=== PATIENT | female | born 1955 | race Caucasian/White ===

== ENCOUNTER → 2018-08-01 09:04 | Outpatient (CLI) | payer BC, SELFPAY ==
--- NOTE | 2018-08-01 09:08 | MM_ITS ---
MM Dig screening mamm BI w/CAD CAD Screening COMPARISON: None, patient had previous mammograms at [place], [place] more than 8 years ago INDICATION: There is no personal or family history of breast cancer TECHNIQUE: Standard CC and MLO images were obtained. R2 CAD reviewed. FINDINGS: Prominent heterogenic fibroglandular densities are seen in the central portions of both breast and the findings are bilateral and symmetrical. There is no suspicious lesion and there are no suspicious microcalcifications. IMPRESSION: Moderately dense parenchymal pattern with no suspicious lesion seen BI-RADS Category: 1 Negative RECOMMENDED FOLLOW-UP: 1YR - 1 YEAR FOLLOW-UP (A letter has been sent to the patient regarding results of the study.)
== END ==
PROVIDERS: PCP Nurse Practitioner Family; Visit Provider Nurse Practitioner Family
DX: Z12.31 Encounter for screening mammogram for malignant neoplasm of breast (principal)
CPT/HCPCS: 77067

== ENCOUNTER 2023-02-12 09:18 | Day surgery (SDC) | payer BC, SELFPAY ==
[2023-02-08 08:44] VITALS: BMI 23.0
[2023-02-12] VITALS (7 sets, daily range): BP systolic 110–150; BP diastolic 58–80; PULSE 54–70; RESP 16–19; TEMP 36.3–36.5; O2SAT 97–100
== END 2023-02-12 11:39 | disposition home or self-care (01) ==
PROVIDERS: PCP Nurse Practitioner Family; Visit Provider Ophthalmology
PROC: (CPT 66984; principal; 2023-02-12 12:00)
DX: H25.811 Combined forms of age-related cataract, right eye (principal)
CPT/HCPCS: 66984; V2632

== ENCOUNTER 2023-02-26 07:39 | Day surgery (SDC) | payer BC, SELFPAY ==
[2023-02-26] VITALS (7 sets, daily range): BP systolic 135–190; BP diastolic 80–88; PULSE 52–61; RESP 16–19; TEMP 36.4–36.7; O2SAT 99–100; BMI 21.6
== END 2023-02-26 10:15 | disposition home or self-care (01) ==
PROVIDERS: PCP Nurse Practitioner Family; Visit Provider Ophthalmology
PROC: (CPT 66984; principal; 2023-02-26 09:30)
DX: H25.812 Combined forms of age-related cataract, left eye (principal)
CPT/HCPCS: 66984; V2632

== ENCOUNTER 2024-07-24 08:09 | Outpatient (CLI) | payer MEDICARE, OTHER, SELFPAY ==
--- NOTE | 2024-07-24 08:14 | CT_ITS ---
FINAL REPORT TECHNIQUE: Pre-and postcontrast axial imaging of the abdomen and pelvis was obtained. Coronal and sagittal reconstructed images were obtained. This study was performed with techniques to keep radiation doses as low as reasonably achievable, (ALARA). Individualized dose reduction technique using automated exposure control or adjustment of mA and/or kV according to the patient's size were employed. CLINICAL HISTORY: DIVERTICULITIS COMPARISON: None FINDINGS: The lung bases are clear. The liver is homogeneous. There is no focal lesion identified. The gallbladder is present. The spleen, adrenal glands, and pancreas are without acute abnormality. There is no hydronephrosis or solid renal mass. On precontrast imaging, there are bilateral nonobstructing renal stones. The largest on the left measures 8 mm. The largest on the right measures 6 mm. The urinary bladder is unremarkable. Abdominal GI tract demonstrates a small hiatal hernia. There is no small bowel obstruction. There is no lymphadenopathy or ascites. The appendix has been resected. There is sigmoid diverticulosis without diverticulitis. The uterus is absent. There is no abdominal or pelvic lymphadenopathy. There is no evidence of free fluid. No acute osseous abnormality identified. IMPRESSION: No acute intra-abdominal or intrapelvic abnormality. Bilateral nonobstructing renal stones. Diverticulosis without diverticulitis. Reviewed, Interpreted and Dictated by Zulema Alvarado MD Transcribed by Khadijah Cortes Authenticated and [facility]
[2024-07-24 08:48] LABS: Blood Urea Nitrogen 19 mg/dl (7-17); Estimated Glomerular Filt Rate 49 ml/min (>60); GFR (African American) 59 ML/MIN (>60)
[2024-07-24] MEDS: IOPAMIDOL-370 (76%);100ML BOTTLE 75 ML IV (09:09)
[2024-07-24] MEDS: SODIUM CHLORIDE 0.9% 10ML SYR (RAD ONLY) 10 ML IV (09:09)
== END 2024-07-24 23:59 | disposition home or self-care (01) ==
LOC: RAD 08:13
PROVIDERS: PCP Nurse Practitioner Family; Visit Provider Nurse Practitioner Family
DX: K57.30 Diverticulosis of large intestine without perforation or abscess without bleeding (principal); N20.0 Calculus of kidney; K44.9 Diaphragmatic hernia without obstruction or gangrene
CPT/HCPCS: 74178; 82565; 84520; Q9967

== ENCOUNTER 2024-11-14 10:40 | Emergency (ER) | payer MEDICARE, OTHER, SELFPAY ==
[2024-11-14 10:47] VITALS: BP 154/97; PULSE 70; RESP 18; TEMP 36.7; O2SAT 98; BMI 21.9
--- NOTE | 2024-11-14 10:56 | PC.NURSE ---
pt was able to do 2500 on IS
[2024-11-14 11:00] VITALS: BP 153/87; PULSE 61; O2SAT 98
[2024-11-14] MEDS: LIDOCAINE 5% TRANSDERMAL PATCH 1 EACH TD (11:12)
--- OUTSIDE RECORDS SUMMARY | 2024-11-14 11:12 | XMS_ITS | Clinical Summary ---
Author Organization [facility] SID[facility]AR[facility] Address [facility] [place] [address] Phone Care Team Providers Care Lean Coach Name Role Phone Unavailable Primary Care Provider Unavailabl e Social History Tobacco Use Types Packs/Day Years Used Date Smoking Tobacco: Never Assessed Comments Unknown Sex and Gender Information Value Date Recorded Sex Assigned at Not on file Legal Sex Female 11:13 AM EST Gender Identity Not on file Sexual Orientation Not on file Obstetrics History Plan of Treatment Health Maintenance Due Date Last Done Comments Annual Wellness Exam [birth year]21/1958 Hepatitis C Screening 1971 DTaP/TDaP/Td (1 - Tdap) 02/21/1972 Cologuard 1998 Colon Cancer Screening 1998 Colonoscopy 1998 FIT 1998 Sigmoidoscopy 1998 Virtual Colonography 1998 Pneumococcal Vaccine 50+ (1 of 1 - PCV) 2003 Zoster (1 of 2) 2003 Bone Density Screening 2018 Breast Cancer Screening 04/16/2022 04/16/2020 COVID-19 Vaccine ( - 2023-2 5 season) 2023 Influenza Vaccine (#1) 2024 Hepatitis B Vaccine Aged Out No longe r eligible based on patient's age to complete this topic Meningococcal B Vaccine Aged Out No l onger eligible based on patient's age to complete this topic Procedures Procedure Name Priority Date/Time Associated Diagnosis Comments MM MAMMO DIGITAL STEPHEN SCREEN BILAT Routine 04/16/2020 9:48 AM EST Screening mammogram, encounter for from Last 3 Months or Most Recently Relevant to Health Maintenance Results * MM MAMMO DIGITAL STEPHEN SCREEN BILAT (04/16/2020 9:48 AM EST) Anatomical Region Laterality Modality Breast Bilateral Mammography 04/25/2020 1:15 PM EST Impressions 04/25/2020 1:15 PM EST Negative ([id number]) ~ RECOMMENDATION: Routine screening mammogram in 1 year. Tomosynthesis recommended ~ DISCLAIMER * Any patient with a palpable abnormality, unexplained by breast imaging, should be managed on clinical basis by the attending physician. * Breast imaging has a false negative rate of 15%. * The patient was notified by mail of the results of this examination. *The patient's information was entered into a reminder system with a target due date for the next mammogram, in accordance with the [employer] and the Society of Breast Imaging recommendations. Narrative 04/25/2020 1:15 PM EST Procedure:MM MAMMO DIGITAL STEPHEN SCREEN BILAT ~ Reason for exam: screening, asymptomatic. Z12.31-Encounter for screening mammogram for malignant neoplasm of [id number] ~ MM MAMMO DIGITAL STEPHEN SCREEN BILAT Bilateral CC and MLO view(s) were taken. Technologist: RT Nae The breast tissue is heterogeneously dense. This may lower the sensitivity of mammography. Prior study comparison: Compared with prior studies the most recent being [facility], August 01, 2018 No mammographic evidence of malignancy. ~ Procedure Note Lamin Bush MD - 04/25/2020 Procedure:MM MAMMO DIGITAL STEPHEN SCREEN BILAT ~ Reason for exam: screening, asymptomatic. Z12.31-Encounter for screening mammogram for malignant neoplasm of [id number] ~ MM MAMMO DIGITAL STEPHEN SCREEN BILAT Bilateral CC and MLO view(s) were taken. Technologist: RT Nae The breast tissue is heterogeneously dense. This may lower thesensitivity of mammography. Prior study comparison: Compared with prior studies the most recentbeing [facility], August 01, 2018 No mammographic evidence of malignancy. ~ IMPRESSION: Negative ([id number]) ~ RECOMMENDATION: Routine screening mammogram in 1 year. Tomosynthesis recommended ~ DISCLAIMER * Any patient with a palpable abnormality, unexplained by breast imaging, should be managed on clinical basis by the attending physician. * Breast imaging has a false negative rate of 15%. * The patient was notified by mail of the results of this examination. *The patient's information was entered into a reminder system with atarget due date for the next mammogram, in accordance with the [employer] and the Society of Breast Imaging recommendations. Vijaya Matos RICHIE IMG MAMMOGRAPHY ORDERABLES Fin al Result from Last 3 Months or Most Recently Relevant to Health Maintenance Insurance [facility] PPO
[2024-11-14] MEDS: METHOCARBAMOL 500MG TABLET 1500 MG PO (11:13)
[2024-11-14] MEDS: ACETAMINOPHEN 500MG TAB 500 MG PO (11:13)
[2024-11-14] MEDS: IBUPROFEN 400 MG TABLET PO (11:13)
--- NOTE | 2024-11-14 11:24 | ED_ITS ---
Discharge Plan Disposition Patient Disposition: Home, Self-Care Condition: Good Prescriptions Prescriptions: New methocarbamol 1,000 mg tablet 1,000 mg PO Q8H Qty: 21 0RF Referrals Follow up/Referrals: Vijaya Matos [Primary Care Provider, Medical] - See instructions Activity Restrictions/Add. Instructions Additional Instructions/Restrictions: Please chart picker Robaxin and take 1000 mg three times daily as needed for muscle spasm and pain. If you have any new or worsening symptoms please return. Otherwise, you should chart picker Lidocaine patches over the counter and use Ibuprofen and Tylenol over the counter to help with pain relief. Clinical Impressions Clinical Impression: Contusion of rib Qualifiers: Encounter type: initial encounter Qualified Code(s): S29.8XXA - Other specified injuries of thorax, initial encounter Print Language Print Language: Finnish Discharge ED Provider: Lai Hardy Adult HPI General Chief complaint: Upper Respiratory Infection Stated complaint: pain under rt ribs, cough Time Seen by Provider: 11/14/24 10:45 Mode of Arrival: Ambulatory Source of Information: Patient Description of Symptoms (Recalled from ER Triage Doc. by RN): r rib pain. she ran into the side of a cardboard box earlier this week. also has a URI History of Present Illness HPI narrative: This is a 69-year-old female patient, with no significant past medical history or daily medications, who is presenting to the emergency department today for evaluation of right-sided rib pain. 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 She is experienced some pain in her rib cage throughout the week and her pain had begun to improve but then she began to develop a nagging cough that is nonproductive of phlegm and she states this cough is agitated the rib injury. She tried to get an appoint with her primary care physician but was unable to do so so she is now here for further evaluation. The patient states that her pain is from 1 particular spot along her rib cage. She does not have a history of COPD or any kind of lung disease. Regarding her current cough, she is not producing phlegm, having no fevers, no sore throat, rhinorrhea, or congestion. She has had no shortness of breath or chest pain aside from this 1 localized portion of the rib cage. Related Data Previous Rx's ?Medication ?Instructions ?Recorded methocarbamol 1,000 mg tablet 1,000 mg PO Q8H #21 tabs 11/14/24 Allergies Allergy/AdvReac Type Severity Reaction Status Date / Time No Known Allergies Allergy Verified 02/26/23 08:38 [facility] Disclaimer: The information contained in this section may have been updated after the patient was seen, as this information can be updated by other users. Medical History (Updated 11/14/24 @ 11:35 by Lai Hardy DO) No significant past medical history Surgical History History of appendectomy Hx of fusion of cervical spine History of hysterectomy Family History Other Family history of cancer Family history of myocardial infarction Family history of non-Hodgkin's lymphoma Social History Smoking Status: Never smoker alcohol intake: never current occupational status: employed Travel in the last 8 weeks?: None ROS Obtained: Yes Systems reviewed as appropriate & no additional complaints except as documented Physical Exam General General appearance: other (See MDM) Respiratory Respiratory exam: Present other (See MDM) Cardiovascular Cardiovascular exam: Present other (See MDM) Neurological Exam Neurological exam: Present other (See MDM) Medical Decision Making Medical Records Medical records reviewed: Yes I reviewed the patient's medical records. Screening: Per USPSTF and CDC recommendations, given the prevalence of disease in our region, it is our hospital?s policy to screen for HIV and viral Hepatitis for all patients aged 18 and over and those with ongoing risk factors. Hunter Inquiry Pt receiving controlled substance: No Hunter was queried for this patient: No Vital Signs: 11/14/24 10:47 Temperature 98.1 F Temperature Source Oral Pulse Rate [Right] 70 Respiratory Rate 18 Blood Pressure [Right Arm] 154/97 H Blood Pressure Mean [Right Arm] 116 02 Sat by Pulse Oximetry 98 Oxygen Delivery Method Room Air Orders (Tests/Meds): ED MEDICATIONS Discontinued Medications Generic Name Dose Route Start Last Admin Trade Name Freq PRN Reason Stop Dose Admin Acetaminophen 500 mg 11/14/24 11:01 11/14/24 11:13 Acetaminophen 500mg Tab PO 11/14/24 11:02 500 mg ONCE ONE Administration Ibuprofen 400 mg 11/14/24 11:01 11/14/24 11:13 Ibuprofen 400 Mg Tablet PO 11/14/24 11:02 400 mg ONCE ONE Administration Lidocaine 1 each 11/14/24 11:01 11/14/24 11:12 Lidocaine 5% Transdermal Patch TD 11/14/24 11:02 1 each ONCE ONE Administration Methocarbamol 1,500 mg 11/14/24 11:01 11/14/24 11:13 Methocarbamol 500mg Tablet PO 11/14/24 11:02 1,500 mg ONCE ONE Administration Medical Decision Narrative: In summary, this is a 69-year-old female patient who is presenting to the emergency department today for evaluation of right-sided rib pain after impacting her rib against a box earlier this week. The patient does not have any comorbidities of complicate her medical management or care. On initial evaluation of the patient they were resting comfortably in no acute distress and nontoxic in appearance. They are hemodynamically stable, saturating well room air, and are neurologically intact. On physical examination the patient she is alert and appropriately interactive with a GCS of 15. Heart and lungs are clear to auscultation bilaterally. She has good movement in multiple zones within the light right lung field. She has no wheezing, rales, rhonchi, or crackles. She does have tenderness along the region of the eighth rib on the right. There is no crepitus felt in this region. She has no evidence of tachypnea, retractions, or tracheal deviation. She has no lower extremity erythema or edema. Differential diagnosis includes rib contusion, rib fracture, viral syndrome, among others. I have discussed the utility of obtaining viral swabs and x-rays with the patient. We have discussed that x-rays have low sensitivity for diagnosing rib fractures and that at day 6 status post injury I have a very low suspicion for pneumothorax associated with rib fractures. Additionally, given that she is point tender along the 1 particular rib I have a low suspicion that she has multiple ribs that are fractured that would necessitate further workup with a CT scan. The patient does not want viral swabs as she does not feel significantly ill, she instead would like pain control modalities to control her rib pain. I do feel that this is reasonable. We have had the patient use incentive spirometry and she has performed greater than 2500 mL of air. She does not have significant pain when doing so. Therefore, we decided to proceed in treating her with Tylenol, ibuprofen, and 1500 mg of Robaxin. We have also placed a lidocaine patch along the rib cage On repeat reassessment the patient she was resting comfortably and was in no acute distress. I have asked the patient to chart picker lidocaine patches ove [id number] at the pharmacy. Will prescribe Robaxin for her to take at home for muscle relaxation and I have also instructed her to continue taking ibuprofen and Tylenol home as well. At this time all questions have been answered and all parties are agreeable with the decision to discharge home Critical Care Critical Care Time Critical Care Time: No
[2024-11-14 11:30] VITALS: BP 149/94; PULSE 70; O2SAT 97
[2024-11-14 11:37] VITALS: BP 149/94; PULSE 63; RESP 16; TEMP 36.7; O2SAT 98
== END 2024-11-14 11:45 | disposition home or self-care (01) ==
PROVIDERS: Emergency Provider Student in an Organized Health Care Education/Training Program; PCP Nurse Practitioner Family
DX: S29.8XXA Other specified injuries of thorax, initial encounter (principal)
CPT/HCPCS: 99283

== ENCOUNTER 2025-03-05 13:16 | Outpatient (CLI) | payer MEDICARE, OTHER, SELFPAY ==
--- OUTSIDE RECORDS SUMMARY | 2025-03-05 13:19 | XMS_ITS | Clinical Summary ---
Author Organization [facility] HUTCHISONBHART[facility] OD Address [facility] [place] [address] Phone Care Team Providers Care Catering Manager Name Role Phone Unavailable Primary Care Provider Unavailabl e Social History Tobacco Use Types Packs/Day Years Used Date Smoking Tobacco: Never Assessed Comments Unknown Sex and Gender Information Value Date Recorded Sex Assigned at Not on file Legal Sex Female 11:13 AM EST Gender Identity Not on file Sexual Orientation Not on file Plan of Treatment Health Maintenance Due Date Last Done Comments Annual Wellness Exam 02/21/1958 Hepatitis C Screening 1971 DTaP/TDaP/Td (1 - Tdap) 02/21/1972 Cologuard 1998 Colon Cancer Screening 1998 Colonoscopy 1998 FIT 1998 Sigmoidoscopy 1998 Virtual Colonography 1998 Pneumococcal Vaccine 50+ (1 of 1 - PCV) 2003 Zoster (1 of 2) 2003 Bone Density Screening 2018 Breast Cancer Screening 04/16/2022 04/16/2020 COVID-19 Vaccine (1 - 2024-2 6 season) 2024 Influenza Vaccine (#1) 2024 Hepatitis B Vaccine [...] EST Impressions 04/25/2020 1:15 PM EST Negative ([id number]) ~ RECOMMENDATION: Routine screening mammogram in 1 [...] the next mammogram, in accordance with the [employer] and the Society of Breast Imaging recommendations. Narrative 04/25/2020 1:15 PM EST Procedure:MM MAMMO DIGITAL STEPHEN SCREEN BILAT ~ Reason for exam: screening, asymptomatic. Z12.31-Encounter for screening mammogram for malignant neoplasm of [id number] ~ MM MAMMO DIGITAL STEPHEN SCREEN BILAT Bilateral CC and MLO view(s) were taken. Technologist: RT Nae The breast tissue is heterogeneously dense. This may lower the sensitivity of mammography. Prior study comparison: Compared with prior studies the most recent being [facility], August 01, 2018 No mammographic evidence of malignancy. ~ Procedure Note Lamin Bush MD - 04/25/2020 Procedure:MM MAMMO DIGITAL STEPHEN SCREEN BILAT ~ Reason for exam: screening, asymptomatic. Z12.31-Encounter for screening mammogram for malignant neoplasm of [id number] ~ MM MAMMO DIGITAL STEPHEN SCREEN BILAT Bilateral CC and MLO view(s) were taken. Technologist: RT Nae The breast tissue is heterogeneously dense. This may lower thesensitivity of mammography. Prior study comparison: Compared with prior studies the most recentbeing [facility], August 01, 2018 No mammographic evidence of malignancy. ~ IMPRESSION: Negative ([id number]) ~ RECOMMENDATION: Routine screening mammogram in 1 [...] the next mammogram, in accordance with the [employer] and the Society of Breast Imaging recommendations. Vijaya Matos RICHIE IMG MAMMOGRAPHY ORDERABLES Fin al Result from Last 3 Months or Most Recently Relevant to Health Maintenance Insurance [address] [id number] [facility] PPO
--- NOTE | 2025-03-05 13:20 | MR_ITS ---
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 The midline structures appear intact. There is no evidence of Chiari malformation. On T2 and flair axial images the brain parenchyma demonstrates small deep white matter signal foci bilaterally, that in this age group likely represent ischemic microvascular change. On diffusion-weighted images there is no evidence of restricted diffusion. The visualized paranasal sinuses demonstrate normal signal voids. The seventh and eighth nerve root complexes are intact. IMPRESSION: Changes of ischemic microvascular disease consistent with the patient's age. No acute intracranial abnormality is identified. Reviewed, Interpreted and Dictated by Shahriar Fang MD Transcribed by Miracle Benjamin Authenticated and [facility]
== END 2025-03-05 23:59 | disposition home or self-care (01) ==
LOC: RAD 13:17
PROVIDERS: PCP Nurse Practitioner Family; Visit Provider Nurse Practitioner Family
DX: G44.52 New daily persistent headache (NDPH) (principal); I67.82 Cerebral ischemia
CPT/HCPCS: 70551